=== PATIENT | female | born 1955 | race Caucasian/White ===

== ENCOUNTER 2017-04-06 08:30 | Day surgery (SDC) | payer OTHER ==
[~2017-04-06] VITALS: Ht 195.6 cm; Wt 63.0 kg
[~2017-04-06 08:30] MED LIST: ADULT LOW DOSE81 MG PO; CALCIUM600 MG PO; FLAX SEED OIL1000 MG PO; GLUCOSAMINE HC500 MG PO; K-TAB ER20 MEQ PO; L-LYSINE500 M1 PO; MULTIVITAMINS1 EAC7 PO; [UNRECOGNIZED DRUG - OTHER] PO
--- NOTE | 2017-04-06 10:20 | NUR ---
04/06/17 1020 Shanice Gilmore TO PACU, RESP EVEN UNLABORED AWAKE.
--- NOTE | 2017-04-14 10:10 | OR ---
[facility] [address], [place] [address] Signed DATE OF OPERATION: 04/06/2017 SURGEON: Angeles Alarcon MD PREOPERATIVE DIAGNOSES: 1. Guaiac-positive stool. 2. Hemorrhoids. POSTOPERATIVE DIAGNOSES: 1. A 4 mm polyp at 10 cm. 2. Significant left-sided diverticulosis with narrowing. 3. Moderate to significant internal hemorrhoids. 4. Minimal to moderate external hemorrhoids. PROCEDURE: Colonoscopy with hot biopsy. ESTIMATED BLOOD LOSS: None. INDICATIONS: Callie is a 61-year-old female, who talked about having hemorrhoid trouble back in her 20s when her kids were born. In the middle of her life, she did pretty well. More recently, she has what she feels hemorrhoid popping out and it is bothering her. 2/3 guaiac cards came back positive as well. She has been putting off her colonoscopy because she took Demerol preoperatively back in the and had some hypotension. I explained to Callie that is quite common preoperatively because she is dehydrated and nothing to do with a true allergy. She told me there is no family history of colon cancer or polyps. In the office, then we decided to go ahead and proceed with colonoscopy. I gave her a pamphlet on colonoscopy and we looked at that together along with the risks. We discussed the risks including, but not limited to, gas bloating, crampy abdominal pain, bleeding, perforation, requiring surgery, and missed diagnosis. We also discussed the need for IV conscious sedation. She decided to go ahead and try the Versed and fentanyl. She had expressed understanding and wished to proceed. PROCEDURE NOTE: Callie was taken into our endoscopy suite and placed in the left lateral decubitus position. She was given divided doses of 12 mg of Versed and 200 mcg of fentanyl to cover the case. A digital rectal exam had been done and she does have 4 small circumferential external hemorrhoids. Her sphincter tone was good. The adult Electronically Signed By: ANGELES ALARCON MD 04/14/17 1010 PATIENT NAME: CALLIE HALE OPERATIVE REPORT DATE OF : 53 PHYSICIAN: ANGELES ALARCON MD REPORT #: [id number] REPORT IS CONFIDENTIAL AND NOT TO BE RELEASED WITHOUT AUTHORIZATION [facility] [address], [place] [address] Signed colonoscope was introduced and advanced under direct visualization of camera. It took a few minutes to get through the rectosigmoid junction because of the angulation and the diverticulosis. Similarly, her sigmoid colon is somewhat long, redundant, and angulated but also a little bit narrowed associated with all the diverticula. It took a few minutes to get through that area with additional sedation as well as abdominal compression. Eventually, we made into the left colon and it opened up nicely and we then continued around to her cecum. She has a somewhat long redundant colon. Her prep was good. The scope was then slowly withdrawn. We took pictures throughout for photodocumentation. Once again, we came back through that sigmoid colon, which is narrowed and gave some tension to our scope. Once we were back into the rectum, we found a small polyp at 10 cm, which we removed with a hot biopsy forceps. After that, the scope was then retroflexed and she does have moderate to significant internal hemorrhoid columns. One is irritated and I am sure this is the area that bleeds on the side that was what appeared to be a polypoid lesion, so we went ahead and grabbed it and we destroyed it quite significantly with our cautery and will send it off to the lab without much cautery. It will be hard to make much sense of that. There was no bleeding from that hemorrhoid column. After this, the gas had been suctioned out and the colonoscope removed. Callie tolerated the procedure well. RECOMMENDATIONS: I will see Callie back in my office in 7 to 14 days to review her results. We need to consider a full rectal exam with anoscopy in the office and she might consider hemorrhoid banding versus formal hemorrhoid surgery depending on her wishes. Angeles Alarcon MD [facility] /[id number] Electronically Signed By: ANGELES ALARCON MD 04/14/17 1010 PATIENT NAME: CALLIE HALE OPERATIVE REPORT DATE OF : 53 PHYSICIAN: ANGELES ALARCON MD REPORT #: [id number] REPORT IS CONFIDENTIAL AND NOT TO BE RELEASED WITHOUT AUTHORIZATION [address] [address] Signed cc: KADY Pitt Electronically Signed By: ANGELES ALARCON MD 04/14/17 1010 PATIENT NAME: ALEXIACALLIEBubba BALBUENA OPERATIVE REPORT DATE OF : 53 PHYSICIAN: ANGELES ALARCON MD REPORT #: [id number] REPORT IS CONFIDENTIAL AND NOT TO BE RELEASED WITHOUT AUTHORIZATION
== END 2017-04-06 10:50 | disposition home or self-care (01) ==
LOC: OPS 08:30 → DS 09:45 → OPS 09:45
PROVIDERS: Colon & Rectal Surgery
PROC: 0DBE8ZX Excision of Large Intestine, Via Natural or Artificial Opening Endoscopic, Diagnostic (ICD-10-PCS; 2017-04-06)
PROC: 0DBP8ZX Excision of Rectum, Via Natural or Artificial Opening Endoscopic, Diagnostic (ICD-10-PCS; principal; 2017-04-06 09:45)
DX: K62.89 Other specified diseases of anus and rectum (principal); K64.4 Residual hemorrhoidal skin tags; K64.8 Other hemorrhoids; K57.30 Diverticulosis of large intestine without perforation or abscess without bleeding; E66.9 Obesity, unspecified; F32.9 Major depressive disorder, single episode, unspecified; Z79.82 Long term (current) use of aspirin; Z90.710 Acquired absence of both cervix and uterus; Z91.040 Latex allergy status; Z88.8 Allergy status to other drugs, medicaments and biological substances; Z79.899 Other long term (current) drug therapy; Z98.890 Other specified postprocedural states; Z68.1 Body mass index [BMI] 19.9 or less, adult
CPT/HCPCS: 99152; 99153; J2250; J3010; J7120